=== PATIENT | female | born 1955 | race Caucasian/White ===

== ENCOUNTER 2022-08-24 | Outpatient (REF) | payer MEDICARE, SELFPAY | END 2022-08-24 00:01 | disposition home or self-care (01) | LOC: CF | PROVIDERS: PCP Internal Medicine; Visit Provider Physician Assistant | DX: S52.502A Unspecified fracture of the lower end of left radius, initial encounter for closed fracture (principal) | CPT/HCPCS: 29085; 99202 ==

== ENCOUNTER 2022-08-24 09:05 | Outpatient (REF) | payer MEDICARE, SELFPAY ==
--- NOTE | ~2022-08-24 | XR_ITS ---
EXAMINATION: XR WRIST, LEFT CLINICAL INFORMATION: Left wrist pain COMPARISON: 07/27/2022 TECHNIQUE: PA, lateral, and oblique views of the left wrist. FINDINGS: Distal impacted radial fracture with mild dorsal angulation of the distal fracture fragment, intra-articular extension cannot be excluded. Osteoarthritis of the first CMC joint. XR/XR wrist LT min 3V IMPRESSION: Distal impacted radial fracture with mild dorsal angulation of the distal fracture fragment, intra-articular extension cannot be excluded.
== END 2022-08-24 09:06 | disposition home or self-care (01) ==
LOC: HO.HOSX 09:05
PROVIDERS: Visit Provider Physician Assistant
DX: M25.532 Pain in left wrist (principal)
CPT/HCPCS: 73110

== ENCOUNTER 2022-09-12 10:45 | Outpatient (REF) | payer MEDICARE, SELFPAY ==
--- NOTE | ~2022-09-12 | XR_ITS ---
EXAMINATION: XR WRIST, LEFT CLINICAL INFORMATION: Pain COMPARISON: Left wrist 08/24/2022 TECHNIQUE: PA, lateral, and oblique views of the left wrist. FINDINGS: There is a healing distal radial fracture with mild callus formation no additional fracture seen. There is soft tissues of improved. Mild dorsal angulation of the wrist is unchanged. XR/XR wrist LT min 3V IMPRESSION: Slowly healing distal radial fracture with mild dorsal angulation, stable.
== END 2022-09-12 10:46 | disposition home or self-care (01) ==
LOC: HO.HOSX 10:45
PROVIDERS: Visit Provider Physician Assistant
DX: S52.502D Unspecified fracture of the lower end of left radius, subsequent encounter for closed fracture with routine healing (principal)
CPT/HCPCS: 29075; 29085; 73110; 99212

== ENCOUNTER 2022-10-07 07:28 | Outpatient (REF) | payer MEDICARE, SELFPAY ==
--- NOTE | ~2022-10-07 | XR_ITS ---
EXAMINATION: XR WRIST, LEFT CLINICAL INFORMATION: Left wrist fracture, follow-up COMPARISON: 09/12/2022, 08/24/2022, 07/27/2022. TECHNIQUE: PA, lateral, and oblique views of the left wrist. FINDINGS: There is interval healing of distal radial fracture with minimal displacement and good callus formation. The fracture line is barely visualized. Radiocarpal joint is preserved. There is ulna plus variance. There are mild degenerative changes at the first carpometacarpal joint. Soft tissues unremarkable. XR/XR wrist LT min 3V IMPRESSION: Interval healing of distal radial fracture with good callus formation.
== END 2022-10-07 07:29 | disposition home or self-care (01) ==
LOC: HO.HOSX 07:28
PROVIDERS: Visit Provider Physician Assistant
DX: S52.502D Unspecified fracture of the lower end of left radius, subsequent encounter for closed fracture with routine healing (principal)
CPT/HCPCS: 73110; 99212